=== PATIENT | female | born 1995 | race Caucasian/White ===

== ENCOUNTER 2018-06-09 14:26 | Emergency (ER) | payer BC ==
[~2018-06-09] VITALS: Ht 157.5 cm; Wt 96.6 kg
[2018-06-09 14:30] VITALS: BP 108/66
[2018-06-09 18:06] VITALS: BP 102/58
== END 2018-06-09 18:06 | disposition home or self-care (01) ==
LOC: MED 14:26
DX: O46.8X2 Other antepartum hemorrhage, second trimester (principal); O23.42 Unspecified infection of urinary tract in pregnancy, second trimester; O26.892 Other specified pregnancy related conditions, second trimester; H60.8X3 Other otitis externa, bilateral; E11.9 Type 2 diabetes mellitus without complications; Z3A.17 17 weeks gestation of pregnancy; Z91.040 Latex allergy status
CPT/HCPCS: 81002; 81025; 99283